=== PATIENT | female | born 1950 | race Caucasian/White ===

== ENCOUNTER 2024-02-25 06:52 | Emergency (ER) | payer MEDICARE ==
[~2024-02-25] VITALS: Ht 160 cm; Wt 73.9 kg
[2024-02-25 07:11] VITALS: BP 143/82; TEMP 97.7
[2024-02-25] MEDS ORDERED: AZIT250T13 PO (07:24)
[2024-02-25] MEDS ORDERED: IBUP-1955 PO (07:25)
[2024-02-25] MEDS ORDERED: IBUPROFEN 600 MG TABLET ONE (07:30)
[2024-02-25 07:56] VITALS: O2SAT 98
[2024-02-25] MEDS: IBUPROFEN 600 MG TABLET PO ONE (07:56)
== END 2024-02-25 07:57 | disposition home or self-care (01) ==
LOC: ER 06:58
DX: J02.9 Acute pharyngitis, unspecified (principal); Z88.1 Allergy status to other antibiotic agents; Z88.2 Allergy status to sulfonamides; Z88.5 Allergy status to narcotic agent
CPT/HCPCS: 86403-TC; 87070-TC